=== PATIENT | male | born 1960 | race Caucasian/White ===

== ENCOUNTER 2020-07-01 16:09 | Observation (INO) | payer OTHER, BC ==
[~2020-07-01] VITALS: Ht 188 cm; Wt 95.5 kg
[2020-07-01 16:42] LABS: BASOPHILS # (AUTO) 0.1 X10'3 (0-0.2); BASOPHILS % (AUTO) 1.1 % (0-1); EOSINOPHILS # (AUTO) 0.6 X10'3 (0-0.9); EOSINOPHILS % (AUTO) 5.6 % (0-6); HEMATOCRIT 46.1 % (42.0-52.0); HEMOGLOBIN 15.6 g/dl (14.0-17.9); MEAN CORPUSCULAR HEMOGLOBIN 32.1 PG (27.0-31.0); MEAN CORPUSCULAR HGB CONC 33.9 g/dL (33.0-36.5); MEAN CORPUSCULAR VOLUME 94.5 FL (78-98); MEAN PLATELET VOLUME 7.4 FL (7.4-10.4); MONOCYTES # (AUTO) 0.8 X10'3 (0-0.9); MONOCYTES % (AUTO) 8.3 % (2-12); NEUTROPHILS # (AUTO) 5.7 X10'3 (1.8-7.7); PLATELET COUNT 292 X10'3 (140-440); RED BLOOD COUNT 4.87 X10'6 (4.70-6.10); RED CELL DISTRIBUTION WIDTH 13.3 % (11.5-14.5); WHITE BLOOD COUNT 10.2 X10'3 (4.5-11.0)
[2020-07-01 16:43] LABS: PARTIAL THROMBOPLASTIN TIME 23 SECONDS (22-32)
[2020-07-01 16:45] LABS: ALANINE AMINOTRANSFERASE 26 U/L (12-78); ALBUMIN 3.5 G/DL (3.4-5.0); ALKALINE PHOSPHATASE 107 IU/L (46-116); ANION GAP 10 (8-16); ASPARTATE AMINO TRANSFERASE 20 U/L (10-37); BILIRUBIN,TOTAL 0.2 MG/DL (0.1-1.0); BLOOD UREA NITROGEN 16 MG/DL (7-18); BUN/CREATININE RATIO 13.8 (5.4-32.0); CALCIUM 9.2 MG/DL (8.5-10.1); CHLORIDE 105 MMOL/L (99-107); CREATININE 1.16 MG/DL (0.60-1.10); GLUCOSE 117 MG/DL (70-104); SODIUM 141 MMOL/L (135-145); TOTAL CARBON DIOXIDE 26.2 MMOL/L (24-32); eGFR 64 ML/MIN
--- NOTE | 2020-07-01 16:48 | NUR ---
pt came back from CT, stroke RN at beside assessment
[2020-07-01 16:49] LABS: TROPONIN I < 0.04 NG/ML (0.0-0.05)
[2020-07-01] MEDS ORDERED: iohexol 350MG/ML 100ml bottle IV ONE (17:22)
[2020-07-01] MEDS ORDERED: magnesium hydroxide 30ml (MOM) UD suspension PO PRN (17:45)
[2020-07-01] MEDS ORDERED: mag hydrox/Alum hydrox/simeth 30ml oral suspension PO PRN (17:45)
[2020-07-01] MEDS ORDERED: acetaminophen 325mg tablet PO PRN (17:45)
[2020-07-01] MEDS ORDERED: haloperidol 5mg tablet PO PRN (17:45)
[2020-07-01] MEDS ORDERED: dextrose 50%-water 50ml dispensing syringe IV PRN (17:45)
[2020-07-01] MEDS ORDERED: ondansetron/PF 4mg/2ml inj IV PRN (17:45)
[2020-07-01] MEDS ORDERED: LORazepam 2 mg/ml vial IV PRN (17:45)
[2020-07-01] MEDS ORDERED: thiamine 100mg/ml 2ml inj. IV ONE (17:45)
[2020-07-01] MEDS ORDERED: haloperidol lactate 5mg/ml inj IM PRN (17:45)
[2020-07-01] MEDS: normal saline 1000ml 1,000 ML IV SCH (18:02)
--- NOTE | 2020-07-01 20:12 | NUR ---
Pt transfer to [id number] on monitor. Report given to Don PIERRE. Pt calm, cooperative, denies pain.
[2020-07-01 20:45] VITALS: BP 145/94
[2020-07-01 21:04] LABS: URINE AMPHETAMINE SCREEN NEGATIVE (Neg); URINE BARBITUATE SCREEN NEGATIVE (Neg); URINE BENZODIAZEPINES SCREEN NEGATIVE (Neg); URINE CANNABINOID SCREEN POSITIVE (Neg); URINE COCAINE SCREEN NEGATIVE (Neg); URINE METHADONE SCREEN NEGATIVE (Neg); URINE OPIATE SCREEN NEGATIVE (Neg); URINE PHENCYCLIDINE SCREEN NEGATIVE (Neg)
[2020-07-01] MEDS ORDERED: LISI40TA13 PO (21:47)
[2020-07-01] MEDS: heparin, porcine 5000 units/ml vial SQ SCH (22:04)
[2020-07-01 22:13] VITALS: BP 123/79
[2020-07-02] MEDS: normal saline 1000ml 1,000 ML IV SCH ×2 (03:45→13:45)
[2020-07-02 03:57] VITALS: BP 125/82
[2020-07-02 06:00] VITALS: BP 142/84
--- NOTE | 2020-07-02 06:32 | NUR ---
REPORT GIVEN TO GABBY MAYA.
[2020-07-02 06:48] LABS: BASOPHILS # (AUTO) 0.1 X10'3 (0-0.2); BASOPHILS % (AUTO) 0.9 % (0-1); EOSINOPHILS # (AUTO) 0.6 X10'3 (0-0.9); EOSINOPHILS % (AUTO) 7.2 % (0-6); HEMATOCRIT 43.7 % (42.0-52.0); HEMOGLOBIN 14.4 g/dl (14.0-17.9); LYMPHOCYTES # (AUTO) 2.3 X10'3 (1.1-4.8); LYMPHOCYTES % (AUTO) 25.5 % (21-51); MEAN CORPUSCULAR HEMOGLOBIN 31.3 PG (27.0-31.0); MEAN CORPUSCULAR HGB CONC 32.9 g/dL (33.0-36.5); MEAN CORPUSCULAR VOLUME 95.1 FL (78-98); MEAN PLATELET VOLUME 7.4 FL (7.4-10.4); MONOCYTES # (AUTO) 0.8 X10'3 (0-0.9); NEUTROPHILS # (AUTO) 5.1 X10'3 (1.8-7.7); NEUTROPHILS % (AUTO) 57.4 % (42-75); PLATELET COUNT 250 X10'3 (140-440); RED BLOOD COUNT 4.59 X10'6 (4.70-6.10); RED CELL DISTRIBUTION WIDTH 13.7 % (11.5-14.5); WHITE BLOOD COUNT 8.9 X10'3 (4.5-11.0)
[2020-07-02 06:58] LABS: ANION GAP 6 (8-16); BLOOD UREA NITROGEN 12 MG/DL (7-18); BUN/CREATININE RATIO 11.4 (5.4-32.0); CALCIUM 8.6 MG/DL (8.5-10.1); CHLORIDE 108 MMOL/L (99-107); CREATININE 1.05 MG/DL (0.60-1.10); GLUCOSE 100 MG/DL (70-104); POTASSIUM 4.2 MMOL/L (3.5-5.1); SODIUM 141 MMOL/L (135-145); TOTAL CARBON DIOXIDE 26.9 MMOL/L (24-32); eGFR 72 ML/MIN
[2020-07-02] MEDS ORDERED: thiamine 100mg tablet PO SCH (08:00)
[2020-07-02] MEDS: heparin, porcine 5000 units/ml vial SQ SCH (08:00)
[2020-07-02] MEDS ORDERED: folic acid 1mg tablet PO SCH (08:00)
--- NOTE | 2020-07-02 09:06 | NUR ---
scanner on computer not scanning morning meds into [facility], checked all meds prior to admin, continue to monitor
[2020-07-02 12:00] VITALS: BP 143/95
[2020-07-02 14:00] VITALS: BP 160/97
[2020-07-02] MEDS ORDERED: THIA100T70 PO (17:28)
[2020-07-02] MEDS ORDERED: ASPI81TA52 PO (17:28)
[2020-07-02] MEDS ORDERED: FOLI0.4T6 PO (17:28)
[2020-07-02] MEDS ORDERED: ATOR20TA PO (17:28)
[2020-07-02 17:49] VITALS: BP 182/110
[2020-07-03] MEDS ORDERED: LORazepam 2 mg/ml vial IV PRN (17:45)
[2020-07-03] MEDS ORDERED: LORazepam 1 MG tablet PO PRN (17:45)
[2020-07-05] MEDS ORDERED: LORazepam 1 MG tablet PO PRN (17:45)
[2020-07-05] MEDS ORDERED: LORazepam 2 mg/ml vial IV PRN (17:45)
== END 2020-07-02 18:15 | disposition home or self-care (01) ==
LOC: ER 16:10 → ED HOLD 17:43 → ORTHO 4S 20:35
PROVIDERS: ADMIT Family Medicine; ATTEND Family Medicine
DX: G45.9 Transient cerebral ischemic attack, unspecified (principal); I10 Essential (primary) hypertension; F17.210 Nicotine dependence, cigarettes, uncomplicated; F12.90 Cannabis use, unspecified, uncomplicated; F10.139 Alcohol abuse with withdrawal, unspecified; Z98.49 Cataract extraction status, unspecified eye; Z79.899 Other long term (current) drug therapy; Y90.1 Blood alcohol level of 20-39 mg/100 ml
CPT/HCPCS: 36415; 70450; 70496; 70498; 70551; 71045; 80048; 80053; 80305; 80320; 82948; 84484; 85025; 85610; 85730; 87081; 93005; 93306; 96361; 96372; 96374; 99285; 99406; G0378; J1644; J3411; J7030; Q9967; 99407